=== PATIENT | male | born 1980 | race Caucasian/White ===

== ENCOUNTER 2017-04-03 14:44 | Emergency (ER) | payer BC ==
[2017-04-03 15:04] VITALS: BP 138/84
--- NOTE | 2017-04-03 15:31 | UC ---
Lower Extremity/Ankle HPI - HPI Summary HPI Summary: 36 year old male with foot pain. Worsened after excessive walking in [place] . Left foot. Getting worse with working and going down and up the ladder at work. Pain not better with OTC meds. Has tried some stretching. No trauma . no foot numbness - History of Current Complaint Chief Complaint: UCLowerExtremity Stated Complaint: LEFT FOOT COMP Time Seen by Provider: 04/03/17 15:01 Hx Obtained From: Patient Onset/Duration: Gradual Onset Severity Initially: Mild Severity Currently: Moderate Aggravating Factor(s): Standing Alleviating Factor(s): Rest Able to Bear Weight: Yes - Allergies/Home Medications Allergies/Adverse Reactions: Allergies Allergy/AdvReac Type Severity Reaction Status Date / Time No Known Allergies Allergy Verified 04/03/17 15:04 PMH/Surg Hx/FS Hx/Imm Hx Previously Healthy: Yes - Surgical History Surgical History: Yes Surgery Procedure, Year, and Place: 2009 LEFT KNEE TORN MENISCUS REPAIR, [facility] - Social History Occupation: Employed Full-time Lives: With Family Alcohol Use: Rare Substance Use Type: None Smoking Status (MU): Former Smoker Type: Cigarettes Amount Used/How Often: 8 CIGARETTES PER DAY Length of Time of Smoking/Using Tobacco: 10 YEARS Have You Smoked in the Last Year: Yes Review of Systems Musculoskeletal: Arthralgia, Decreased ROM Is Patient Immunocompromised?: No All Other Systems Reviewed And Are Negative: Yes Physical Exam Triage Information Reviewed: Yes Appearance: Well-Appearing, Well-Nourished Vital Signs: Initial Vital Signs Temp 98.2 F 04/03/17 14:59 Pulse 82 04/03/17 14:59 Resp 18 04/03/17 14:59 BP 138/84 04/03/17 14:59 Pulse Ox 98 04/03/17 14:59 Vital Signs Reviewed: Yes Respiratory Exam: Normal Cardiovascular Exam: Normal Musculoskeletal Exam: Normal Musculoskeletal: Positive: Other: - left plantar foot pain to palpation. skin color normal. pain at the base of the calcaneus. worse with flexion. no effusion. FROM intact. Neurological Exam: Normal Psychological Exam: Normal Skin Exam: Normal Lower Extremity Course/Dx - Course Course Of Treatment: start stretching, given instruction, NSAIDs, ice/ refer to podiatry - Differential Dx/Diagnosis Differential Diagnosis/HQI/PQRI: Contusion, Sprain, Strain Provider Diagnoses: plantar fasciitis Discharge - Discharge Plan Condition: Good Disposition: HOME Patient Education Materials: Plantar Fasciitis (ED), Plantar Fasciitis Exercises (GEN) Referrals: Donna Roger MD [Primary Care Provider] - 4 Days Hay Canas DPM [Doctor of Podiatric Medicine] - 5 Days (Podiatry referral )
== END 2017-04-03 15:39 | disposition home or self-care (01) ==
LOC: UCCORT 14:44
DX: M72.2 Plantar fascial fibromatosis (principal); Z87.891 Personal history of nicotine dependence
CPT/HCPCS: 99211; G0463

== ENCOUNTER 2017-06-22 15:59 | Emergency (ER) | payer BC ==
[2017-06-22 16:40] VITALS: BP 158/97
--- NOTE | 2017-06-22 17:27 | UC ---
Ear Complaint HPI - HPI Summary HPI Summary: ear pain for couple of weeks not nothing helping tried netti pot for nasal congestion ibuprofen - denies fever or chills. earache both ears - History of Current Complaint Chief Complaint: UCEar Stated Complaint: BILATERAL EAR COMPLAINT Time Seen by Provider: 06/22/17 17:07 Hx Obtained From: Patient Onset/Duration: Lasting Weeks Severity Initially: Moderate Severity Currently: Moderate Associated Signs/Symptoms: Positive: Hearing Loss - Allergies/Home Medications Allergies/Adverse Reactions: Allergies Allergy/AdvReac Type Severity Reaction Status Date / Time No Known Allergies Allergy Verified 06/22/17 16:40 Home Medications: Home Medications Zjcsixdoab-Jdhdlwwspnbib-Mibgb [Sinus & Congestion Daytim] 1 tab PO DAILY PRN [History Confirmed 06/22/17] PMH/Surg Hx/FS Hx/Imm Hx Previously Healthy: Yes - Surgical History Surgical History: Yes Surgery Procedure, Year, and Place: 2009 LEFT KNEE TORN MENISCUS REPAIR, [facility]. RIGHT WRIST SX - Social History Alcohol Use: Rare Substance Use Type: None Smoking Status (MU): Former Smoker Type: Cigarettes Amount Used/How Often: 8 CIGARETTES PER DAY Length of Time of Smoking/Using Tobacco: 10 YRS Have You Smoked in the Last Year: Yes When Did the Patient Quit Smoking/Using Tobacco: 11/2015 Review of Systems Constitutional: Fatigue Skin: Negative Eyes: Negative ENT: Ear Ache - both ears Respiratory: Negative Cardiovascular: Negative Gastrointestinal: Negative Genitourinary: Negative Is Patient Immunocompromised?: No All Other Systems Reviewed And Are Negative: Yes Physical Exam Triage Information Reviewed: Yes Appearance: Ill-Appearing Vital Signs: Initial Vital Signs Temp 98.2 F 06/22/17 16:32 Pulse 91 06/22/17 16:32 Resp 12 06/22/17 16:32 BP 158/97 06/22/17 16:32 Pulse Ox 98 06/22/17 16:32 Eye Exam: Normal ENT: Positive: Pharyngeal erythema, TM bulging - both ears, TM red - left ear Neck exam: Normal Respiratory Exam: Normal Cardiovascular Exam: Normal Abdominal Exam: Normal Psychological Exam: Normal Skin Exam: Normal Ear Complaint Course/Dx - Course Course Of Treatment: take abx as directed with food to reduce GI upset. increase fluid intake daily while on abx to prevent dehydration. take ibuprofen BID for few days routinely then prn pain/fever. f/u pcp 1 week if sympotoms not resolving - Differential Dx/Diagnosis Differential Diagnosis/HQI/PQRI: Otitis Media Provider Diagnoses: otitis media - left Discharge - Discharge Plan Condition: Good Disposition: HOME Prescriptions: Amoxicillin PO (*) [Amoxicillin 875 MG (*)] 875 mg PO BID 10 Days #20 tab Ibuprofen [Ibuprofen 200 MG] 600 mg PO BEDTIME 10 Days #20 cap Patient Education Materials: Otitis Media (ED) Referrals: Valarie Beasley NP [Primary Care Provider] - 1 Week
[2017-06-22] MEDS ORDERED: Amoxicillin PO (*) 500 MG CAP PO ONE ×4 (17:47→17:59)
== END 2017-06-22 18:02 | disposition home or self-care (01) ==
LOC: UCCORT 15:59
DX: H66.92 Otitis media, unspecified, left ear (principal); R53.83 Other fatigue; Z87.891 Personal history of nicotine dependence
CPT/HCPCS: 99212; A9270-GY; G0463

== ENCOUNTER 2017-11-11 09:07 | Emergency (ER) | payer BC ==
--- OUTSIDE RECORDS SUMMARY | 2017-11-11 09:29 | XMS REPORT ---
:1980 External Reference #:[id number] Author Organization [facility] 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 Manju Beasley NP Primary Care Physician Unavailable Payers Type Date Identification Numbers Payment Provider Subscriber Commercial Policy Number: [id number] [employer] Johny Glasgow PayID: [id number] [address] [address] [place] [address] Workers Compensation Onset: 2009 Policy Number: Malik Glasgow [id number] Group Number: [id number] [address] PayID: [id number] [place] [address] Problems Date Description Provider Status Onset: 05/05/2014 Calcaneal spur Hay Fernandez M.D., FACS Active Onset: 09/27/2015 Generalized anxiety disorder Jenaurora Beasley, GLOBAL CONSUMER SECTOR VICE PRESIDENT Active Onset: 09/27/2015 Panic disorder without Manju Beasley, GLOBAL CONSUMER SECTOR VICE PRESIDENT Active agoraphobia Onset: 09/27/2015 Tobacco user Manju Beasley, GLOBAL CONSUMER SECTOR VICE PRESIDENT Active Onset: 09/27/2015 Morbid obesity Jenaurora Beasley, GLOBAL CONSUMER SECTOR VICE PRESIDENT Active Onset: 10/17/2017 Complex tear of lat mensc, Barbara Asher MD Active current injury, right knee, subs Onset: 10/17/2017 Localized, primary Barbara Asher MD Active osteoarthritis Onset: 05/06/2011 Arthralgia of the lower leg Hay Fernandez M.D., FACS Resolved Resolved: 05/15/2015 Onset: 05/06/2011 Chondromalacia of patella Hay Fernandez M.D., FACS Resolved Resolved: 05/15/2015 Onset: 05/06/2011 Current tear of lateral Hay Fernandez M.D., FACS Resolved cartilage AND/OR meniscus of knee Resolved: 05/15/2015 Onset: 05/05/2014 Nonunion of fracture Hay Fernandez M.D., FACS Resolved Resolved: 05/15/2015 Onset: 07/18/2014 Closed fracture of scaphoid Hay Fernandez M.D., FACS Resolved bone of wrist Resolved: 05/15/2015 Family History Date Family Member(s) Problem(s) Comments Grandfather due to COPD () Grandfather Cancer Grandmother Cancer Social History Type Date Description Comments Lives With 4 kids 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 Cigarette Use Former Cigarette Smoker ETOH Use Rarely consumes alcohol Smoking using e-cigarettes Recreational Drug Use Denies Drug Use Daily Caffeine Current Caffeine User Allergies, Adverse Reactions, Alerts Date Description Reaction Status Severity Comments 07/02/2010 NKDA active Medications Medication Date Status Form Strength Qnty SIG Indications Ordering Provider Omeprazole Active Capsules 20mg Unknown /0000 DR Aguirre Active Chewtabs 500mg as needed Jenniferleigh / ALEXANDRE Beasley Ibuprofen Active Capsules 200mg 2 caps Unknown /0000 every 6 hrs as needed Lisinopril 09/09 Hx Tablets 20mg 90tab 1 by mouth I10 s every day ALEXANDRE Beasley - 10/06 Blood 09/09 Hx Device 1unit use twice I10 Pressure /2016 s weekly for ALEXANDRE Beasley Monitor - blood Deluxe/Wrist/ 10/06 pressure monitoring Celexa 03/27 Hx Tablets 20mg 60tab 2 tab by F41.1 s mouth every ALEXANDRE Beasley - day 09/09 Buspirone HCL 03/13 Hx Tablets 5mg 60tab take 1 s tablet by ALEXANDRE Beasley - mouth two 03/27 times a day /2014 for anxiety Celexa 03/03 Hx Tablets 10mg 60tab one by F41.1 Anel s mouth every ALEXANDRE Beasley - day x 7 03/27 days increase to 2 tabs by mouth every day Lorazepam 03/03 Hx Tablets 1mg 90tab 1 and 06/17 F41.0 Keshia Thomas s tab by Valencia - mouth two 09/26 times a day /2015 - as needed panic attacks - Reference #: [id number] No Active 05/05 Hx Unknown Medications /2013 - 05/05 Hydrocodone 09/03 Hx Tablets 5-325mg 60tab 1 tab by Gerard Tobias/ s mouth every Valencia Mueller etaminophen - 4 hours as 03/06 Ibuprofen Hx Tablets 200mg 3-4 by tabs Unknown /0000 q 6-8hrs - prn 05/05 Nexium Hx Capsules 40mg 90cap 1 po qd Unknown /0000 DR mcneal - 03/07 Omeprazole Hx Capsules 40mg 60cap 1 po qd Unknown /0000 DR mcneal - 05/05 Tylenol Hx Tablets 325mg prn Unknown /0000 - 06/27 Ibuprofen 00/ Hx Tablets prn Unknown /0000 - 03/03 Anexsia Hx Tablets 5-325mg Unknown /0000 - 03/03 Medications Administered in Office Medication Date Status Form Strength Qnty SIG Indications Ordering Provider Depomedrol 80 Administered Injection Gerard Mueller M.D. Immunizations CPT Code Status Date Vaccine Lot # [id number] Given 08/16/2014 Tdap injection Vital Signs Date Vital Result Comment 10/17/2017 BP Systolic 140 mmHg BP Diastolic 97 mmHg Body Temperature 98.9 F Heart Rate 88 /min Height 73 inches 6'1" Weight 410.00 lb BMI (Body Mass Index) 54.1 kg/m2 BSA (Body Surface Area) 2.92 m2 [place] body weight in kilograms 83 10/06/2017 BP Systolic Sitting Left Arm 123 mmHg BP Diastolic Sitting Left Arm 83 mmHg Body Temperature 97.7 F Heart Rate 88 /min Respiratory Rate 20 /min Height 73 inches 6'1" Weight 406.00 lb BMI (Body Mass Index) 53.6 kg/m2 BSA (Body Surface Area) 2.91 m2 [place] body weight in kilograms 83 O2 % BldC Oximetry 95 % Ra Pain Level 4 09/09/2016 BP Systolic Sitting Resting Right Arm 156 mmHg BP Diastolic Sitting Resting Right Arm 90 mmHg Heart Rate 92 /min Respiratory Rate 18 /min Height 73 inches 6'1" Weight 411.00 lb BMI (Body Mass Index) 54.2 kg/m2 BSA (Body Surface Area) 2.92 m2 [place] body weight in kilograms 83 09/27/2015 BP Systolic Sitting Left Arm 126 mmHg BP Diastolic Sitting Left Arm 78 mmHg Height 73 inches 6'1" Weight 367.00 lb BMI (Body Mass Index) 48.4 kg/m2 BSA (Body Surface Area) 2.78 m2 05/15/2015 BP Systolic 126 mmHg BP Diastolic 72 mmHg Height 73 inches 6'1" Weight 365.00 lb BMI (Body Mass Index) 48.2 kg/m2 BSA (Body Surface Area) 2.78 m2 03/27/2015 BP Systolic 126 mmHg BP Diastolic 78 mmHg Height 73 inches 6'1" Weight 348.25 lb BMI (Body Mass Index) 45.9 kg/m2 BSA (Body Surface Area) 2.72 m2 03/03/2015 BP Systolic 136 mmHg BP Diastolic 84 mmHg Heart Rate 80 /min Respiratory Rate 18 /min Height 73 inches 6'1" Weight 353.00 lb BMI (Body Mass Index) 46.6 kg/m2 BSA (Body Surface Area) 2.74 m2 08/16/2014 BP Systolic 146 mmHg BP Diastolic 92 mmHg Heart Rate 84 /min Respiratory Rate 18 /min Height 73 inches 6'1" Weight 348.00 lb 06/27/2014 BP Systolic Sitting Left Arm 138 mmHg BP Diastolic Sitting Left Arm 64 mmHg Height 73.5 inches 6'1.50" Weight 367.50 lb BMI (Body Mass Index) 47.8 kg/m2 BSA (Body Surface Area) 2.80 m2 05/05/2014 BP Systolic Sitting Left Arm 122 mmHg BP Diastolic Sitting Left Arm 88 mmHg Height 73.5 inches 6'1.50" Weight 386.00 lb BMI (Body Mass Index) 50.2 kg/m2 BSA (Body Surface Area) 2.86 m2 09/04/2012 BP Systolic 118 mmHg LG Cuff BP Diastolic 72 mmHg LG Cuff Height 74 inches 6'2" Weight 372.00 lb Results Test Date Test Result H/L Range Note CBS W/Automated Diff 09/09/2016 White Blood Count 5.5 K/uL 3.4-10.5 1 Red Blood Count 4.85 M/uL 4.20-5.80 1 Hemoglobin 14.9 gm/dL 12.8-17.0 1 Hematocrit 43.5 % 38.0-48.0 1 Mean Cell Volume 89.7 fl 80.0-96.0 1 Mean Corpuscular HGB 30.7 pg 27.0-33.0 1 Mean Corpuscular HGB Conc 34.3 g/dL 31.7-36.0 1 Platelet Count 277 K/uL 150-400 1 Red Cell Distri Width SD 43.0 fl 36-51 1 Red Cell Distri Width %CV 13.4 % 11.6-15.8 1 Mean Platelet Volume 10.7 fL High 6.6-10.6 1 Neut% 52.1 % 33.0-73.0 1 Lymph % 34.9 % 20.0-42.0 1 Dodge % 9.8 % 0.0-10.0 1 Eo% 2.5 % 0.0-6.6 1 Bas% 0.7 % 0.0-1.1 1 Neut# 2.86 K/uL 1.8-7.0 1 Lymph # 1.92 K/uL 1.0-4.0 1 Dodge # 0.54 K/uL 0.0-0.8 1 Eos # 0.14 K/uL 0.0-0.5 1 Baso # 0.04 K/uL 0.0-0.1 1 LDL Cholesterol Profile 09/09/2016 Cholesterol 213 mg/dL High <200 1, 2 Triglycerides 133 mg/dL <150 1, 3 HDL Cholesterol 42 mg/dL >40 1, 4 LDL-Cholesterol 144 mg/dL < 100 1, 5 Glycohemoglobin A1c 09/09/2016 Glycohemoglobin (A1c) 5.6 % 4.2-6.3 1, 6 eAG 114 mg/dL 1 Comprehensive Metabolic Panel 09/09/2016 Glucose 108 mg/dL High 74-106 1 BUN 17 mg/dL 7-18 1 Creatinine 1.1 mg/dL 0.6-1.3 1 Glom Filtration Rate, Estimate >60 mL/min >60 1 If >60 mL/min >60 1, 7 BUN/Creat 15.4 ratio 1 Sodium 140 mmol/L 136-145 1 Potassium 4.1 mmol/L 3.5-5.1 1 Chloride 103 mmol/L 98-107 1 Carbon Dioxide 29 mmol/L 21-32 1 Anion Gap 8 mEq/L 8-16 1 Calcium 9.1 mg/dL 8.5-10.1 1 Total Protein 7.9 g/dL 6.4-8.2 1 Albumin 4.0 g/dL 3.4-5.0 1 Globulin 3.9 g/dL 1.9-4.3 1 Alb/Glob 1.0 ratio 1 Bilirubin,Total 0.4 mg/dL 0.2-1.0 1 Sgot/Ast 14 U/L Low 15-37 1, 8 SGPT/Alt 26 U/L 12-78 1 Alkaline Phosphatase 84 U/L 45-117 1 Semen Analysis/Fertility 09/07/2012 Non-Progressive Motility 60 %NONPR. Progressive Motility 40 %PROG Semen Liquefaction See Note Minutes <30 9 Sperm Motility 60 >=60%Motile Urine Screen 02/02/2010 Urine Color YELLOW Yellow Urine Clarity CLEAR Clear Urine Glucose - Dipstick NEGATIVE mg/dL Negative Urine Bilirubin - Dipstick NEGATIVE Negative Urine Ketone TRACE mg/dL High Negative Urine Specific [place] 1.020 1.010-1.030 Urine Blood NEGATIVE Negative Urine PH 7.0 6.5-7.5 Urine Protein - Dipstick NEGATIVE mg/dL Negative Urine Urobilinogen - Dipstick 2.0 E.U./dL High 0.2-1.0 Urine Nitrite - Dipstick NEGATIVE Negative Urine Leuk Esterase NEGATIVE Negative Laboratory test finding 02/02/2010 Act Partial Thrombo 28.2 seconds 23.4- 37.4 10 Time Protime 02/02/2010 Protime 13.3 seconds 11.7-15.1 Inr 1.0 0.8-1.2 11 CBC 02/02/2010 White Blood Count 6.5 K/uL 3.4-10.5 Red Blood Count 4.79 M/uL 4.20-5.80 Hemoglobin 15.4 gm/dL 12.8-17.0 Hematocrit 44.9 % 38.0-48.0 Mean Cell Volume 93.7 fl 80.0-96.0 Mean Corpuscular HGB 32.2 pg 27.0-33.0 Mean Corpuscular HGB Conc 34.3 g/dL 31.7-36.0 Platelet Count 252 K/uL 150-400 Red Cell Distri Width %CV 13.4 % 11.6-15.8 Mean Platelet Volume 9.7 fL 6.6-10.6 Basic Metabolic Panel 02/02/2010 Glucose 104 mg/dL 76-115 BUN 16 mg/dL 5-23 Creatinine 1.1 mg/dL 0.5-1.4 Glom Filtration Rate, Estimate >60 mL/min >60 If >60 mL/min >60 12 BUN/Creat 14.5 Sodium 138 mEq/L 136-145 Potassium 4.0 mEq/L 3.5-5.1 Chloride 104 mEq/L 98-107 Carbon Dioxide 28 mEq/L 21-32 Anion Gap 10 mEq/L 8-16 Calcium 9.0 mg/dL 8.5-10.1 1 I10 2 Reference Guidelines*: Desirable: ........... < 200 mg/dL Borderline High: ..... 200-239 mg/dL High: ................ >=240 mg/dL * The National Cholesterol Education Program (NCEP) 3 Reference Guidelines*: Normal: ............. < 150 mg/dL Borderline High: .... 150-199 mg/dL High: ............... 200-499 mg/dL Very High: .......... > 500 mg/dL * Source: National Cholesterol Education Program (NCEP) 4 Reference Guidelines*: Low HDL: ..... < 40 mg/dL Normal: ..... 40-60 mg/dL Desirable: ... > 60 mg/dL *The National Cholesterol Education Program(NCEP) 5 Reference Guidelines*: Optimal:........... <100 mg/dL Near Optimal....... 100-129 mg/dL Borderline High.... 130-159 mg/dL High............... 160-189 mg/dL Very High.......... >=190 mg/dL * Source: National Cholesterol Education Program (NCEP) 6 Elevated levels of HbA1c suggest the need for more aggressive treatment of glycemia. The [place] Diabetes Association recommends that a primary goal of therapy should be a HbA1c of <7% and that physicians should re-evaluate the treatment regimen in patients with HbA1c values consistently >8%. 7 Note: Persistent reduction for 3 months or more in an eGFR <60 mL/min/1.73 m2 defines CKD. Patients with eGFR values >/=60 mL/min/1.73 m2 may also have CKD if evidence of persistent proteinuria is present. The original MDRD equation for estimated GFR is not valid for patients less than 18 years of age. Additional information may be found at www.kdoqi.org. 8 Values below the stated reference ranges of AST and ALT can be seen in normal populations. Clinical correlation is suggested. 9 SPECIMEN SENT TO REFERENCE LABORATORY SEE MANUAL REPORT 10 IS PATIENT ON HEPARIN PROTOCOL ? N IS PATIENT ON ANTICOAGULANTS? UNKNOWN QUERY: @EMR Pat ID: QUERY: @EMR Req #: QUERY: Anticoagulant Therapy? QUERY: Date of Last Dose: QUERY: Time of Last Dose: 11 THERAPEUTIC INR RANGE: 2.0 - 3.0 DVT, Pulmonary embolus, prophylaxis against venous thrombosis or systemic embolization in high risk patients. 2.5 - 3.5 Mechanical heart valves 12 Note: Persistent reduction for 3 months or more in an eGFR <60 mL/min/1.73 m2 defines CKD. Patients with eGFR values >/=60 mL/min/1.73 m2 may also have CKD if evidence of persistent proteinuria is present. The original MDRD equation for estimated GFR is not valid for patients less than 18 years of age. Additional information may be found at www.kdoqi.org. Procedures Date CPT Code Description Status 10/06/2017 29058 Radiology, Distal Femur--Knee 1 Or 2 Views Completed 07/18/2014 87433 Radiology, Hand: Minimum Three Views Completed 05/05/2014 91522 Radiology, Foot, Complete-3 Views Completed 03/07/2011 82405 Radiology, Knee 3 Views Completed 10/11/2010 63567 EKG-Tracing And Report Completed 09/03/2010 16490 Asp./Injection major joint Completed 02/06/2010 80788 Arthroscopy w/meniscectomy including meniscal shaving Completed 02/06/2010 82070 Chrondroplasty debridement/shaving of articular Completed cartilage Encounters Type Date Location Provider CPT E/M Dx Office Visit 10/06/2017 10:15a Orthopaedic Office FREDDIE Cordero 28318 M25.561 M23.91 Office Visit 09/09/2016 9:15a Family Medicine Manju Gale, [facility] [address]371 I10 E66.01 Z68.43 Office Visit 09/27/2015 11:00a Family Medicine Shellyaurora Gale, [facility] [address]5589 F41.1 F41.0 B07.0 Office Visit 05/15/2015 3:30p Family Medicine Shellyaurora Gale [facility] [address]459 F41.1 F41.0 F17.210 E66.01 Z71.6 Office Visit 03/27/2015 3:30p Family Medicine Shellyaurora Gale, [facility] [address]373 F41.1 F41.0 Office Visit 03/03/2015 1:30p Family Medicine Shellyaurora Gale, [facility] 61533 F41.1 F41.0 Office Visit 07/18/2014 9:15a Orthopaedic Office Hay Fernandez, [address]5495 719.44 M.D., FACS 719.44 Office Visit 06/27/2014 9:00a Orthopaedic Office Hay Fernandez, 61289 923.20 M.D., FACS E917.9 Office Visit 05/11/2014 9:30a Orthopaedic Office Hay Fernandez, 77671 733.82 M.D., FACS 726.73 Office Visit 05/05/2014 9:00a Orthopaedic Office Hay Fernandez, 61225 733.82 M.D., FACS 726.73 719.47 Office Visit 07/19/2010 2:30p Orthopaedic Office Gerard Mueller, 61119 v67.09 M.D. Office Visit 01/18/2010 9:30a Orthopaedic Office Gerard Mueller, 36710 836.1 M.D. Office Visit 12/20/2009 1:15p Orthopaedic Office Gerard Mueller, 57940 719.46 M.Rosa 719.06 E917.8 E849.3 Plan of Care 10/17/2017 - Barbara Asher, [id number] Complex tear of lat mensc, current injury , right knee, subsComments:Informed consent consent signed after full risks and benefits discussionFor details please see the note [email or web address] Unilateral primary osteoarthritis, right knee
[2017-11-11 09:37] VITALS: BP 150/91
--- NOTE | 2017-11-11 09:58 | RAD ---
INDICATION: LEFT hand fifth metacarpal joint pain following punching injury this morning. Comparison: No relevant prior exams available on the [facility] PACS for comparison. Technique: AP, lateral, and oblique views LEFT hand. Report: Comminuted mildly impacted fracture at the distal metaphysis of the fifth metacarpal with approximate 80 degrees apex dorsal angulation. Overlying soft tissue swelling. Negative for additional fracture. Negative for dislocation. IMPRESSION: Boxer's fracture fifth metacarpal.
--- NOTE | 2017-11-11 11:10 | UC ---
Hand/Wrist HPI - HPI Summary HPI Summary: left hand pain x 1 day punched the wall this morning ' pain and swelling of his left hand / left 5th metacarpal - History Of Current Complaint Chief Complaint: UCUpperExtremity Stated Complaint: LEFT HAND COMPLAINT Time Seen by Provider: 11/11/17 09:38 Hx Obtained From: Patient Onset/Duration: Sudden Onset, Lasting Days - 1, Still Present Severity Initially: Moderate Severity Currently: Moderate Pain Intensity: 6 Pain Scale Used: 0-10 Numeric Character Of Pain: Throbbing Aggravating Factor(s): Movement, Lifting, Flexion, Extension Alleviating Factor(s): Rest, Ice Associated Signs And Symptoms: Positive: Swelling, Weakness. Negative: Redness , Bruising, Fever, Numbness/Tingling - Allergies/Home Medications Allergies/Adverse Reactions: Allergies Allergy/AdvReac Type Severity Reaction Status Date / Time No Known Allergies Allergy Verified 11/11/17 09:30 Home Medications: Home Medications Hydrocodone/Acetaminophen [Hydrocodone/Acetaminophen 5-325 mg] 1 tab PO Q4H PRN 11/11/17 [History Confirmed 11/11/17] PMH/Surg Hx/FS Hx/Imm Hx Previously Healthy: Yes - Surgical History Surgical History: Yes Surgery Procedure, Year, and Place: 2009 LEFT KNEE TORN MENISCUS REPAIR, [facility]. RIGHT WRIST SX. R knee - Family History Known Family History: Negative: Diabetes - Social History Alcohol Use: None Substance Use Type: None Smoking Status (MU): Former Smoker Type: Cigarettes Amount Used/How Often: 8 CIGARETTES PER DAY Length of Time of Smoking/Using Tobacco: 10 YRS Have You Smoked in the Last Year: Yes When Did the Patient Quit Smoking/Using Tobacco: 11/2015 Review of Systems Constitutional: Negative Skin: Negative Eyes: Negative ENT: Negative Respiratory: Negative Is Patient Immunocompromised?: No All Other Systems Reviewed And Are Negative: Yes Physical Exam Triage Information Reviewed: Yes Appearance: Well-Appearing, No Pain Distress, Obese Vital Signs: Initial Vital Signs Temp 98.5 F 11/11/17 09:32 Pulse 78 11/11/17 09:32 Resp 20 11/11/17 09:32 BP 150/91 11/11/17 09:32 Pulse Ox 98 11/11/17 09:32 Vital Signs Reviewed: Yes Eye Exam: Normal Eyes: Positive: Conjunctiva Clear ENT: Positive: Normal ENT inspection, Hearing grossly normal, Pharynx normal Neck: Positive: Supple, Nontender, No Lymphadenopathy Respiratory: Positive: Chest non-tender, Lungs clear, Normal breath sounds Cardiovascular: Positive: RRR, No Murmur, Pulses Normal Bowel Sounds: Positive: Present Musculoskeletal: Positive: Other: - left hand: + swelling , tenderness left 5th metacarpal, limited rom on flexion , limited strength Diagnostics - Laboratory Diagnostic Studies Completed/Ordered: boxer's fracture left hand Hand/Wrist Course/Dx - Differential Dx/Diagnosis Provider Diagnoses: Boxers fracture left hand Discharge - Sign-Out/Discharge Documenting (check all that apply): Discharge/Admit/Transfer - Discharge Plan Condition: Stable Disposition: HOME Patient Education Materials: Boxer Fracture (ED) Referrals: Barbara Asher MD [Medical Doctor] - As Soon As Possible Valarie Beasley NP [Primary Care Provider] - - Billing Disposition and Condition Condition: STABLE Disposition: HOME
== END 2017-11-11 10:32 | disposition home or self-care (01) ==
LOC: UCCORT 09:07
DX: S62.307A Unspecified fracture of fifth metacarpal bone, left hand, initial encounter for closed fracture (principal); W22.01XA Walked into wall, initial encounter; Y92.9 Unspecified place or not applicable; F17.210 Nicotine dependence, cigarettes, uncomplicated; E66.9 Obesity, unspecified; Z68.43 Body mass index [BMI] 50.0-59.9, adult
CPT/HCPCS: 26600; 99211; G0463

== ENCOUNTER 2019-01-17 10:29 | Emergency (ER) | payer BC ==
[2019-01-17 10:52] VITALS: BP 131/85
--- NOTE | 2019-01-17 11:17 | UC ---
Eye Complaint HPI - HPI Summary HPI Summary: 38-year-old male presents with complaints of left eye redness, drainage, and swelling of the upper eyelid. States 5 days ago he started with what he thought was a stye of the left upper eyelid. Has been doing warm compresses to the eye. 2 days ago started having increased redness and swelling of the eyelid and started with left eye redness with a yellowish green discharge. Denies fever, chills, visual disturbances, photophobia, injury, foreign body sensation, or URI symptoms. - History of Current Complaint Chief Complaint: UCEye Stated Complaint: LEFT EYE COMPLAINT Time Seen by Provider: 01/17/19 10:46 Hx Obtained From: Patient Pain Intensity: 2 - Allergies/Home Medications Allergies/Adverse Reactions: Allergies Allergy/AdvReac Type Severity Reaction Status Date / Time No Known Allergies Allergy Verified 01/17/19 10:52 Home Medications: Home Medications Omeprazole 20 mg PO DAILY 01/17/19 [History Confirmed 01/17/19] PARoxetine HCl [Paroxetine HCl] 40 mg PO DAILY 01/17/19 [History Confirmed 01/17] Tiotropium CAP.INH* [Spiriva CAP.INH*] 1 cap.inh INH BID 01/17/19 [History Confirmed 01/17/19] PMH/Surg Hx/FS Hx/Imm Hx Respiratory History: Asthma GI/ History: Gastroesophageal Reflux Psychological History: Depression - Surgical History Surgical History: Yes Surgery Procedure, Year, and Place: 2009 LEFT KNEE TORN MENISCUS REPAIR, [facility]. RIGHT WRIST SX. R knee,2017 - Family History Known Family History: Positive: Non-Contributory - Social History Occupation: Employed Full-time Lives: With Family Alcohol Use: Rare Substance Use Type: None Smoking Status (MU): Former Smoker Type: Cigarettes Amount Used/How Often: 8 CIGARETTES PER DAY Length of Time of Smoking/Using Tobacco: 10 YRS Have You Smoked in the Last Year: Yes When Did the Patient Quit Smoking/Using Tobacco: 11/2015 Review of Systems All Other Systems Reviewed And Are Negative: Yes Constitutional: Negative: Fever, Chills Eyes: Positive: Drainage, Eye Redness, Other - eyelid swelling. Negative: Blurred Vision, Diplopia, Photophobia ENT: Positive: Negative Respiratory: Positive: Negative Cardiovascular: Positive: Negative Gastrointestinal: Positive: Negative Genitourinary: Positive: Negative Musculoskeletal: Positive: Negative Neurological: Positive: Negative Is Patient Immunocompromised?: No Physical Exam - Summary Physical Exam Summary: GENERAL APPEARANCE: Alert and cooperative adult male who appears to be in no acute distress. EYES: Right eye normal. Conjunctival erythema with a small amount of purulent drainage was noted to the left eye. PERRL. Extraocular eye movements are intact. Vision grossly intact. EARS: External auditory canals and tympanic membranes clear, hearing grossly intact. NOSE: No nasal discharge. THROAT: Pharynx normal. No tonsilar inflammation, swelling, exudate, or lesions. Uvula midline. Oral cavity normal. Teeth and gingiva in good general condition. NECK: Neck supple, non-tender without lymphadenopathy. CARDIAC: Normal S1 and S2. No S3, S4 or murmurs. Rhythm is regular. There is no peripheral edema, cyanosis or pallor. Extremities are warm and well perfused. Capillary refill is less than 2 seconds. Peripheral pulses intact. LUNGS: Clear to auscultation without rales, rhonchi, wheezing or diminished breath sounds. ABDOMEN: Positive bowel sounds. Soft, nondistended, nontender. No guarding or rebound. No masses or hepatosplenomegally. MUSKULOSKELETAL: ROM intact to all extremities. No joint erythema or tenderness. Normal muscular development. Normal gait. SKIN: Skin normal color, texture and turgor with no lesions or eruptions. Triage Information Reviewed: Yes Vital Signs: Initial Vital Signs Temp 98 F 01/17/19 10:45 Pulse 85 01/17/19 10:45 Resp 16 01/17/19 10:45 BP 131/85 01/17/19 10:45 Pulse Ox 95 01/17/19 10:45 Vital Signs Reviewed: Yes Eye Complaint Course/Dx - Course Course Of Treatment: 38-year-old male presents with complaints of left eye redness, drainage, and swelling of the upper eyelid. States 5 days ago he started with what he thought was a stye of the left upper eyelid. Has been doing warm compresses to the eye. 2 days ago started having increased redness and swelling of the eyelid and started with left eye redness with a yellowish green discharge. Denies fever, chills, visual disturbances, photophobia, injury, foreign body sensation, or URI symptoms. Afebrile. Vital signs stable. Patient hand mild erythema and edema of the left upper eyelid. No lesions were noted. Conjunctival erythema with a small amount of purulent drainage was noted to the left eye. PERRL. Extraocular eye movements are intact. Vision grossly intact. Acuity was reviewed. Remainder of exam was unremarkable. Recommending treatment for a bacterial conjunctivitis and blepharitis of the left eye. He is to start Polytrim ophthalmic 1 drop every 3 hours into the left eye while awake 7 days. He is to follow-up with ophthalmology within 2 days if symptoms do not improve. Anticipatory guidance warning symptoms were reviewed with the patient. Verbalizes understanding and agrees with plan of care. - Differential Dx/Diagnosis Differential Diagnosis/HQI/PQRI: Conjunctivitis, Corneal Abrasion, Foreign Body , Keratitis, Periorbital Cellulitis, Orbital Cellulitis Provider Diagnosis: Bacterial conjunctivitis of left eye, Blepharitis of eyelid of left eye Discharge - Sign-Out/Discharge Documenting (check all that apply): Patient Departure All imaging exams completed and their final reports reviewed: No Studies - Discharge Plan Condition: Stable Disposition: HOME Prescriptions: Polymyx/Trimethoprim OPTH* [Polytrim OPHTH*] 1 drop LEFT EYE Q3H #1 btl Patient Education Materials: Conjunctivitis (ED) Referrals: Valarie Beasley NP [Primary Care Provider] - Manuel Toledo MD [Medical Doctor] - 2 Days Additional Instructions: Start Polytrim ophthalmic 1 drop into the affected eye every 3 hours while awake for 7 days. Continue doing the warm compresses several times a day. To avoid reinfection or spreading infection: * Use washcloths and towels once then launder. * Do not share washcloths or towels with others. * Change your pillow case each morning until you have finished treatment. * You should throw out any eye makeup, especially mascara, and use a new one once you have finished treatment. Follow up with ophthalmology within 2 days if no improvement. Call for appointment. Seek immediate medical attention in the emergency room if you develop fever greater than 100.5 F, have increased pain or swelling of the eye, visual disturbances, loss of vision, or any worsening of symptoms. - Billing Disposition and Condition Condition: STABLE Disposition: Home
== END 2019-01-17 11:35 | disposition home or self-care (01) ==
LOC: UCCORT 10:29
DX: H10.89 Other conjunctivitis (principal); H01.004 Unspecified blepharitis left upper eyelid; J45.909 Unspecified asthma, uncomplicated; K21.9 Gastro-esophageal reflux disease without esophagitis; F32.9 Major depressive disorder, single episode, unspecified; Z87.891 Personal history of nicotine dependence
CPT/HCPCS: 99212; G0463